=== PATIENT | male | born 1980 | race Caucasian/White ===

== ENCOUNTER 2023-08-03 13:03 | Emergency (ER) | payer OTHER ==
[~2023-08-03] VITALS: Ht 177.8 cm; Wt 54.4 kg
[2023-08-03 13:13] VITALS: BP 112/74; PULSE 90; RESP 18; TEMP 99.1; O2SAT 100
[2023-08-03] MEDS: ACETAMINOPHEN EXTRA STRENGTH 500 MG TAB PO ONE (14:17)
[2023-08-03] MEDS: NACL 0.9% 1,000 ML IV ONE (14:17)
[2023-08-03 14:21] LABS: BASOPHILS % (AUTO) 0.5 % (0.0-2.0); HEMATOCRIT 39.1 % (36-52); HEMOGLOBIN 13.3 g/dL (12.0-18.0); LYMPHOCYTES # (AUTO) 0.6 K/uL (2.0-11.5); LYMPHOCYTES % (AUTO) 12.8 % (20.5-51.1); MEAN CORPUSCULAR HEMOGLOBIN 32 pg (27-31); MEAN CORPUSCULAR HGB CONC 34 g/dL (33-37); MEAN CORPUSCULAR VOLUME 92.5 fL (80-94); MONOCYTES # (AUTO) 0.4 K/uL (0.8-1.0); MONOCYTES % (AUTO) 8.5 % (1.7-9.3); NEUTROPHILS # (AUTO) 3.8 K/uL (1.8-7.7); NEUTROPHILS % (AUTO) 78.2 % (42.2-75.2); PLATELET COUNT (AUTO) 149 K/uL (140-450); RED BLOOD CELL COUNT(AUTO) 4.23 MIL/uL (4.20-6.10); RED CELL DISTRIBUTION WIDTH 13.4 % (11.6-13.7); WHITE BLOOD COUNT (AUTO) 4.9 K/uL (4.8-10.8)
[2023-08-03 14:27] LABS: ANION GAP 11.7 (8-16); CALCIUM 8.4 mg/dL (8.5-10.1); CARBON DIOXIDE 27.9 mmol/L (21-32); POTASSIUM 3.6 mmol/L (3.5-5.1)
[2023-08-03] MEDS: KETOROLAC 30 MG/ML VIAL IVP ONE (14:32)
[2023-08-03] MEDS: METOCLOPRAMIDE 10 MG/2 ML INJ VIAL IVP ONE (14:34)
[2023-08-03 14:45] LABS: INR 1.03 (0.8-1.2); PARTIAL THROMBOPLASTIN TIME 30.5 secs (22-35.6); PROTHROMBIN TIME 10.8 secs (10.8-13.4)
[2023-08-03 15:32] VITALS: O2SAT 100
[2023-08-03 17:44] VITALS: BP 101/62; PULSE 85; RESP 18; TEMP 98.6; O2SAT 100
== END 2023-08-03 18:48 | disposition home or self-care (01) ==
LOC: MED 13:03
DX: B34.9 Viral infection, unspecified (principal); R07.9 Chest pain, unspecified
CPT/HCPCS: 36415; 71045; 80048; 83880; 84484; 85025; 85610; 85730; 93005; 96361; 96374; 96375; 99285; J1885; J2765; J7030; Q0092